=== PATIENT | female | born 1985 | race African-American/Black ===

== ENCOUNTER 2017-02-19 14:45 | Emergency (ER) | payer OTHER ==
[2017-02-19 13:30] LABS: BASOPHIL# 0.1 X10e3 (0-0.3); BASOPHIL% 0.8 % (0-2.5); EOSINOPHIL# 0.1 X10e3 (0-0.7); EOSINOPHIL% 1.4 % (0.0-7.0); HEMATOCRIT 44.7 % (35.0-45.0); HEMOGLOBIN 14.9 gm/dL (12.0-16.0); LYMPHOCYTE# 2.6 X10e3 (1.0-3.5); LYMPHOCYTE% 31.3 % (17.0-45.0); MEAN CELL VOLUME 87.2 FL (83-96); MEAN CORPUSCULAR HEMOGLOBIN 29.2 PG (28-34); MEAN CORPUSCULAR HGB CONC 33.4 g/dL (30-36); MEAN PLATELET VOLUME 8.7 FL (6.5-11.5); MONOCYTE# 0.4 X10e3 (0-1.0); MONOCYTE% 5.2 % (3.0-12.0); NEUTROPHIL% 61.3 % (40-75); PLATELET COUNT 211 X10e3 (140-420); RED BLOOD COUNT 5.12 X10e (3.90-5.30); RED CELL DISTRIBUTION WIDTH 14.2 % (11.0-15.5); WHITE BLOOD COUNT 8.1 X10e3 (4.0-10.5)
[2017-02-19 13:31] LABS: DIFF IND NO
[2017-02-19 13:56] LABS: BILIRUBIN, DIRECT 0.1 mg/dL (0.0-0.2); BILIRUBIN,INDIRECT 0.3 mg/dL (0.0-0.9); BILIRUBIN,TOTAL 0.4 mg/dL (0.2-2.0); BUN/CREATININE RATIO 15.71; CALCIUM SERUM 9.1 mg/dL (8.4-10.2); CREATININE SERUM 0.7 mg/dL (0.6-1.4); GLOM FILT RATE Estimated 132.9 mL/min (>60); PROTEIN TOTAL SERUM 7.4 g/dL (6.0-8.3)
[~2017-02-19 14:45] MED LIST: ALBUTEROL17 GM INH; CARAFATE1 G PO; CHILD IBUP100 MG/51 PO; DIFLUCAN PO; ERYTHROMYCIN O3.5 GM OD; LEVAQUIN PO; LORTAB 5/500 TA1 TA1 PO; MEDROL PO; NAPROSYN500 MG PO; ORUDIS75 M1 DOB; PHENERGAN PO; PREDNISONE PO; PREDNISONE10 MG PO; PRILOSEC20 MG PO; REGLAN10 MG PO; VIBRAMYCIN100 M1 PO; ZYRTEC1 MG/1 ML PO
[2017-02-19 15:14] LABS: URINE SOURCE CLEAN CATCH
[2017-02-19 15:18] LABS: URINE APPEARANCE CLEAR; URINE BLOOD 3+ (NEG); URINE COLOR DK YELLOW; URINE GLUCOSE NEG (NEG); URINE KETONE TRACE (NEG); URINE LEUKOCYTE ESTERASE 1+ (NEG); URINE NITRATE NEG (NEG); URINE PH 5.5 (5-8); URINE PROTEIN TRACE (NEG); URINE SPECIFIC GRAVITY 1.035 (1.003-1.035)
[2017-02-19 15:22] LABS: CULTURE INDICATED? YES; URBCS1 AUWI 100-200 /[HPF] (0-2); URINE BACTERIA AUWI NEG (NEGATIVE); URINE SQUAMOUS EPITHELIAL CELL OCC /[HPF]
[2017-02-19 15:31] LABS: URINE BILIRUBIN NEG (NEG)
== END 2017-02-19 15:57 | disposition home or self-care (01) ==
LOC: CED 14:45
DX: N93.8 Other specified abnormal uterine and vaginal bleeding (principal); F17.200 Nicotine dependence, unspecified, uncomplicated
CPT/HCPCS: 36415; 80048; 80076; 81003; 83690; 84703; 85025; 87086; 99284

== ENCOUNTER 2017-05-10 23:46 | Emergency (ER) | payer OTHER ==
--- NOTE | ~2017-05-10 | CR172 ---
[facility] A Service of [facility] & [facility] RADIOLOGY TEXT RESULTS PATIENT: ALBA GUEVARA LOCATION: [facility] : 83 UNIT #: [id number] AGE: [address]: Laura Casarez APRN SEX: F ORDER DR: [id number] [facility] [address] [place], [place] [address] [id number] E MR#: [id number] Acc #: [id number] NAME: ALBA GUEVARA : 1985 SEX: F STUDY DATE/TIME: 05/11/2017 0:33 UNIT: [facility] ROOM: STUDY DESCRIPTION: CR Knee 3 Views Lt Attending Physician: Laura Casarez A.P.R.N. Ordering Physician: Laura Casarez A.P.R.N. Primary Care Physician: Primary Care Physician No MEDICAL IMAGING REPORT This report is preliminary unless electronic signature is present EXAM Left knee series INDICATION Left knee pain for the past 2 days. PROCEDURE 3 views left knee COMPARISON None. FINDINGS No acute fracture, dislocation or joint effusion. IMPRESSION No acute findings. Dictated by... Gerardo Moran M.D. THIS IS AN ELECTRONICALLY VERIFIED REPORT Gerardo Moran M.D. at 05/11/2017 10:22 PM PAULY/[email or web address] TD: 05/11/2017 03:04 JOB #: [id number] MEDICAL IMAGING REPORT Page 1 of 1 COPY
== END 2017-05-11 02:10 | disposition home or self-care (01) ==
LOC: CED 23:46
DX: S89.92XA Unspecified injury of left lower leg, initial encounter (principal); J45.909 Unspecified asthma, uncomplicated; F17.210 Nicotine dependence, cigarettes, uncomplicated; X58.XXXA Exposure to other specified factors, initial encounter; Y92.9 Unspecified place or not applicable
CPT/HCPCS: 29530; 73562; 96372; 99283; J1885